=== PATIENT | female | born 1945 | race Caucasian/White ===

== ENCOUNTER 2021-02-16 10:33 | Emergency (ER) | payer OTHER ==
[~2021-02-16] VITALS: Ht 167.6 cm; Wt 59.0 kg
[~2021-02-16 10:33] MED LIST: CALCIUM 500+D1 EAC2 PO; FISH OIL 1,0001 EAC5 PO; FLEXERIL PO; MULTIVITAMINS; NORCO 5-325 TA1 EACH PO; VITAMIN D1000 UNI1 PO; ZOLOFT 50 MG TA50 M1 PO
[2021-02-16] MEDS ORDERED: OMEPRAZOLE 20 M20 M1 PO (10:49)
[2021-02-16] MEDS ORDERED: SERTRALINE HCL100 MG PO (10:49)
[2021-02-16] MEDS ORDERED: LEVO-T50 MCG PO (10:49)
[2021-02-16 11:18] LABS: HEMATOCRIT 35.7 % (37.0-47.0); HEMOGLOBIN 11.8 gm/dL (12.0-15.0); MCH 28.7 pg (26.0-34.0); MPV 6.9 fl. (7.2-11.1); RBC 4.11 mil/uL (4.20-5.00); WBC 9.8 thou/uL (4.0-11.0)
[2021-02-16 11:25] LABS: POTASSIUM 3.5 mmol/L (3.5-5.1)
[2021-02-16] MEDS ORDERED: DOXYCYCLINE 10100 M2 PO (12:20)
[2021-02-16 12:31] VITALS: BP 117/59
== END 2021-02-16 12:32 | disposition home or self-care (01) ==
LOC: M.ERS 10:33
PROVIDERS: Emergency Medicine Emergency Medical Services
DX: J32.9 Chronic sinusitis, unspecified (principal); M19.90 Unspecified osteoarthritis, unspecified site; Z85.3 Personal history of malignant neoplasm of breast; Z90.12 Acquired absence of left breast and nipple; Z88.0 Allergy status to penicillin; Z88.2 Allergy status to sulfonamides; Z90.710 Acquired absence of both cervix and uterus

== ENCOUNTER → 2021-05-12 | Outpatient (CLI) | payer OTHER ==
[~2021-05-12] MED LIST changes: +DOXYCYCLINE 10100 M2 PO; +LEVO-T50 MCG PO; +OMEPRAZOLE 20 M20 M1 PO; +SERTRALINE HCL100 MG PO
== END ==
LOC: M.RAD 12:12
PROVIDERS: ATTEND Family Medicine
DX: J84.9 Interstitial pulmonary disease, unspecified (principal); R63.4 Abnormal weight loss; Z85.3 Personal history of malignant neoplasm of breast